=== PATIENT | female | born 1960 | race Caucasian/White ===

== ENCOUNTER 2020-09-18 06:05 | Inpatient (IN) | payer OTHER, SELFPAY ==
[2020-09-13 13:41] LABS: PLATELET COUNT 262 x10^3mcL (179-408); RED CELL DISTRIBUTION WIDTH 13.2 % (12.3-17.7)
[2020-09-13 13:42] LABS: BASOPHIL % 3.5 % (0.2-1.3)
[2020-09-13 13:46] LABS: ALBUMIN 3.5 g/dL (3.4-5.0); ALKALINE PHOSPHATASE 81 U/L (46-116); ALT/SGPT 19 U/L (14-59); AST/SGOT 17 U/L (15-37); BILIRUBIN TOTAL 0.5 mg/dL (0.20-1.00); CALCIUM 9.3 mg/dL (8.5-10.1); CARBON DIOXIDE 27.3 mmol/L (21-32); CHLORIDE SERUM 104 mmol/L (98-107); GFR1 > 60 mL/min; GLUCOSE SERUM 100 mg/dL (74-106); POTASSIUM SERUM 3.9 mmol/L (3.5-5.1); SODIUM SERUM 141 mmol/L (136-145); TOTAL PROTEIN, SERUM 6.7 g/dL (6.4-8.2)
[~2020-09-18] VITALS: Ht 167.6 cm; Wt 80.7 kg
[2020-09-18 06:17] VITALS: BP 130/67
[2020-09-18 11:07] VITALS: BP 117/71
[2020-09-18 16:19] VITALS: BP 106/61
[2020-09-18 21:24] VITALS: BP 113/56
[2020-09-19 05:41] VITALS: BP 111/55
[2020-09-19 08:09] VITALS: BP 115/54
[2020-09-19 08:58] LABS: PHOSPHOROUS 3.4 mg/dL (2.5-4.9)
[2020-09-19 11:54] VITALS: BP 118/60
[2020-09-19 13:02] VITALS: BP 118/60
== END 2020-09-19 15:43 | disposition home or self-care (01) | DRG 446 ==
LOC: DS 06:05 → OR 07:30 → MU 09:11 → DU 09:11 → MU 17:21
PROVIDERS: Family Medicine; Urology; ADMIT Hospitalist; ATTEND Hospitalist
PROC: 0TBB8ZZ Excision of Bladder, Via Natural or Artificial Opening Endoscopic (ICD-10-PCS; principal; 2020-09-18 07:30)
DX: D49.4 Neoplasm of unspecified behavior of bladder (principal); F17.210 Nicotine dependence, cigarettes, uncomplicated; Z20.822 Contact with and (suspected) exposure to COVID-19; Z71.6 Tobacco abuse counseling
CPT/HCPCS: C1769; G0378; J0696; J2175; J2250; J2405; J2704; J3010; J7030; J7120